=== PATIENT | male | born 1980 | race Caucasian/White ===

== ENCOUNTER 2022-06-12 18:25 | Emergency (ER) | payer OTHER, MEDICAID, SELFPAY ==
[2022-06-12 18:33] VITALS: BP 139/78; PULSE 93; RESP 17; TEMP 36.2; O2SAT 97; BMI 31.8
--- NOTE | 2022-06-12 19:43 | ED.NECK ---
HPI - Neck Pain/Injury General Chief Complaint: Neck Pain/Injury Stated Complaint: Painful lump on left side neck Time Seen by Provider: 06/12/22 19:37 Mode of arrival: Ambulatory History of Present Illness HPI Narrative: Patient here for painful left lateral upper neck mass for the past 6 months. Worse in the past couple of days. No trouble breathing or swallowing denies any previous injury or infection to this area. Patient just seen at [facility] 2 days ago and had blood work and CT scan imaging of the neck. Has follow-up appointment this upcoming Wednesday with ENT in [place]. Patient was seen in [place]. He is here he states because they did not prescribe him any pain medication. He is had Percocet in the past without any difficulty. Patient agrees since there have been no other changes other than pain no further blood work or imaging indicated today. Calling for medical records. Denies any drug use or addiction. Patient states the CT imaging of his neck from [facility] did not show fluid collection. It is a mass. Patient was prescribed clindamycin. Was given referral to ENT Dr. Chris garcia.. Patient did have CT scan imaging of the neck at another facility this month as well. Patient is not allergic to Tylenol. We are trying to make the correction on the allergy list. He took Tylenol today. Related Data Previous Rx's Medication Instructions Recorded ondansetron 4 mg disintegrating 4 mg PO Q8H PRN nausea and 06/12/22 tablet vomiting #10 tabs oxycodone-acetaminophen 5 mg-325 1 tab PO Q8H PRN pain #10 tabs 06/12/22 mg tablet (Percocet) Allergies Allergy/AdvReac Type Severity Reaction Status Date / Time acetaminophen Allergy Severe Anaphylaxis Verified 06/12/22 18:40 [From Darvocet-N] ciprofloxacin Allergy Severe Anaphylaxis Verified 06/12/22 18:40 Penicillins Allergy Severe Anaphylaxis Verified 06/12/22 18:40 propoxyphene Allergy Severe Anaphylaxis Verified 06/12/22 18:40 [From Darvocet-N] Quinolones Allergy Severe Anaphylaxis Verified 06/12/22 18:40 Sulfa (Sulfonamide Allergy Severe Anaphylaxis Verified 06/12/22 18:40 Antibiotics) prochlorperazine AdvReac Dizziness Verified 06/12/22 18:40 [From Compazine] Review of Systems Review of Systems Narrative: GENERAL: Denies chills, fatigue, malaise, fever, sweats. HEENT: Denies sinus pain, ear pain, sore throat RESPIRATORY: Denies dyspnea, cough CARDIOVASCULAR: Denies chest pain, palpitations GASTROINTESTINAL: Denies nausea, vomiting, abdominal pain : Denies dysuria, frequency, hematuria MUSCULOSKELETAL: denies muscle or bony pain SKIN: Denies rash, positive skin lesions NEUROLOGIC: Denies weakness, numbness ROS Unobtainable: All systems reviewed & are unremarkable except as noted in HPI and below Patient History Social History Smoking Status: Never smoker Smoking Status: Never smoker alcohol intake frequency: other Substance Use Type: does not use Exam Narrative Exam Narrative: GENERAL: in no distress, not toxic not dyspneic HEAD: Normocephalic. EYES: Pupils equal round No scleral icterus. ENT: Mucous membranes moist. No tongue elevation no trismus no malocclusion no drooling. NECK: Trachea midline. There is tender 6 cm diameter palpable nonfluctuant mass in the left upper lateral neck. No fluctuance. No red streaking no erythema it is tender to touch, no stridor CARDIOVASCULAR: Regular rate and rhythm without murmurs RESPIRATORY: Clear to auscultation. Breath sounds equal bilaterally. No wheezes, rales, or rhonchi. NEURO: AOx4. SKIN: Warm and dry PSYCH: Not anxious, is cooperative Initial Vital Signs Initial Vital Signs: Vital Signs Temperature 97.1 F L 06/12/22 18:33 Pulse Rate 93 H 06/12/22 18:33 Respiratory Rate 17 06/12/22 18:33 Blood Pressure 139/78 06/12/22 18:33 Pulse Oximetry 97 06/12/22 18:33 Oxygen Delivery Method 06/12/22 18:33 Course Course Course Narrative: No new issues during course of stay Orders Ordered: Discontinued Medications Sodium Chloride (Normal Saline 0.9%) 1,000 mls @ 1,000 mls/hr IV BOLUS ONE Stop: 06/12/22 20:37 Last Admin: 06/12/22 19:46 Dose: Not Given Documented By: ANNI Reevaluation(s) Reevaluation #1: Return precautions reviewed with patient. Patient agrees with treatment plan. He has appointment this upcoming Wednesday with ENT. He states he is just here because he was not prescribed any pain medication from 2 days ago. Time: 19:54 Vital Signs Vital signs: Vital Signs - 8 hr 06/12/22 18:33 06/12/22 19:53 06/12/22 19:54 Temperature 97.1 F L Pulse Rate 93 H 88 Respiratory Rate 17 Blood Pressure 139/78 108/64 Pulse Oximetry 97 97 Oxygen Delivery Method Room Air Room Air 06/12/22 19:54 Temperature Pulse Rate 91 H Respiratory Rate Blood Pressure Pulse Oximetry 96 Oxygen Delivery Method Room Air MDM - Neck Pain/Injury Differential Diagnosis Differential diagnosis: Likely other (Neck mass/abscess/cyst) MDM Narrative Medical decision making narrative: Appropriate for discharge home. Patient has already had imaging and laboratory studies 2 days ago at [facility] Emergency Department. Patient already has appointment set up this upcoming Wednesday with otolaryngology. Return precautions reviewed with patient. Airway intact. Discharge Plan Departure Patient Disposition: Home Clinical Impression: Mass of left side of neck Instructions: DI for Neck Pain Activity Restrictions/Additional Instructions: No driving operate machinery when taking prescribed pain medication. Please see the ear nose and throat doctor on Wednesday as scheduled. Return if worse if any questions or concerns. Prescriptions: New ondansetron 4 mg tablet,disintegrating 4 mg PO Q8H PRN (Reason: nausea and vomiting) Qty: 10 0RF oxycodone-acetaminophen [Percocet] 5-325 mg tablet 1 tab PO Q8H PRN (Reason: pain) Qty: 10 0RF Visit Report Forms: Patient Portal/API
[2022-06-12 19:53] VITALS: PULSE 88; O2SAT 97
[2022-06-12 19:54] VITALS: BP 108/64; PULSE 91; O2SAT 96
== END 2022-06-12 20:10 | disposition home or self-care (01) ==
PROVIDERS: Emergency Provider Emergency Medicine
DX: L02.11 Cutaneous abscess of neck (principal)
CPT/HCPCS: 99281